=== PATIENT | female | born 1970 | race Caucasian/White ===

== ENCOUNTER 2024-11-02 13:23 | Emergency (ER) | payer OTHER, SELFPAY ==
[2024-11-02 13:24] VITALS: BP 170/98
[2024-11-02 13:29] LABS: Glucose - Point of Care 511 mg/dl (70-99)
[2024-11-02 14:29] LABS: Hematocrit 45.4 % (37.0-47.0); Hemoglobin 16.2 g/dL (12.0-16.0); Mean Corp Hgb Conc. 35.7 g/dL (33.0-37.0); Mean Corpuscular Volume 82.1 fL (81.0-99.0); Nucleated Red Blood Cells % 0 %; Platelet Count 277 10^3/uL (130-400); Red Cell Dist. Width 12.8 % (11.5-14.5)
[2024-11-02 14:55] LABS: ALT (SGPT) 17 U/L (0-35); AST (SGOT) 16 U/L (14-36); Albumin 4.1 g/dl (3.5-5.0); Alkaline Phosphatase 100 U/L (38-126); Blood Urea Nitrogen 21 mg/dl (7-17); Calcium 9.3 mg/dl (8.4-10.2); Carbon Dioxide 27 mmol/L (22-30); Chloride 95 mmol/L (98-107); Glucose 538 mg/dl (70-99); Potassium 4.4 mmol/L (3.5-5.1); Sodium 131 mmol/L (135-145); Total Protein 6.5 g/dl (6.3-8.2); eGFR > 60.00
[2024-11-02 14:56] VITALS: BMI 28.9
[2024-11-02] MEDS: LR 1000 IV (15:10)
[2024-11-02] MEDS: NOVOLOG vial 12 UNITS SC (15:30)
[2024-11-02 16:00] VITALS: BP 119/93
--- NOTE | 2024-11-02 16:05 | ED.GENMED ---
History of Present Illness
General
Chief Complaint: Blood Sugar Problem
Time Seen by Provider: 11/02/24 14:42
History of Present Illness
History of Present Illness:
54-year-old female presents to the emergency department due to uncontrolled blood sugars. She reports that she recently was on a course of prednisone which caused her sugars to elevate. She notes that she has occasional 'heaviness' of her tongue
but denies any polyuria or polydipsia. She admits that she neglected to take care of her known diabetes for the past several years. No chest pain or shortness of breath
Past History
Past History
ED Past Medical History: None
ED Past Surgical History: None
Social History
Tobacco: Non-smoker
Alcohol: Occasional
Personal:
Living: with family
Employment: Employed
Family History
Family History: Cancer
Review of Systems
Review of Systems
Allergies reviewed?: Yes
All Other Systems: ROS reviewed and negative except as documented in HPI and ROS
Phy Exam
Physical Exam
Physical Exam:
GEN: Well appearing, NAD, WDWN
HEENT: Oral mucosa moist, no scleral icterus
Cardiac: Regular rate and rhythm, no murmur
Lung: No respiratory distress, no tachypnea
Abdomen: Soft, nontender
MSK: No gross deformity or injuries
Skin: Good color, no pallor or jaundice, no rashes
Neuro: AO x3, moves all extremities freely
Psych: Calm, cooperative
Course
Orders/Labs/Results
Orders:
Orders
11/02/24 14:13
B-Hydroxybutyrate Urgent
Complete Blood Count/With Diff Urgent
Comprehensive Metabolic Panel Urgent
11/02/24 14:54
Lactated Ringers [Lr] 1,000 ml IV BOLUS
11/02/24 15:22
Insulin Aspart [NOVOLOG vial] 12 units SC NOW STA
11/02/24 16:18
Bedside Glucose- Treatment ONCE
Abnormal Lab Results
11/02/24 11/02/24 11/02/24
13:28 14:13 16:40
WBC 15.2 H 10^3/uL
(4.8-10.8)
RBC 5.53 H 10^6/uL
(4.20-5.40)
Hgb 16.2 H g/dL
(12.0-16.0)
Abs Immat Gran (auto) 0.1 H 10^3/uL
(0-0.05)
Absolute Neuts (auto) 13.3 H 10^3/uL
(1.4-6.5)
Neutrophils % 87.7 H %
(42.2-75.2)
Lymphocytes % 8.4 L %
(20.5-51.1)
Sodium 131 L mmol/L
(135-145)
Chloride 95 L mmol/L
(98-107)
BUN 21 H mg/dl
(7-17)
Creatinine 0.5 L mg/dL
(0.6-1.0)
Glucose 538 H* mg/dl
(70-99)
B-Hydroxybutyrate 1.53 H mmol/L
(0.02-0.27)
POC Glucose 511 H* mg/dl 364 H mg/dl
(70-99) (70-99)
11/02/24 14:13
11/02/24 14:13
Vital Signs
Initial and Last Documented VS:
Initial Vital Signs
Temp Pulse Resp BP Pulse Ox
97.8 F 97 18 170/98 98
11/02/24 13:24 11/02/24 13:24 11/02/24 13:24 11/02/24 13:24 11/02/24 13:24
Last Documented Vital Signs
Temp Pulse Resp BP Pulse Ox
97.8 F 84 12 128/74 97
11/02/24 13:24 11/02/24 16:45 11/02/24 16:45 11/02/24 16:31 11/02/24 16:45
MDM/Problems Addressed
MDM/Problems Addressed:
Patient significant increase in glucoses most likely driven by prednisone dosage recently. She is a known uncontrolled diabetic however on labs today she is mildly ketotic with no anion gap. We did treat her in the ED with subcu insulin and IV
fluids. We will refer her as an outpatient to the diabetes educators, we discussed initiation of oral medications however she notes prior intolerance to metformin thus we will start glipizide
*Pulse Oximetry
SaO2: 96
Oxygen Mode of Delivery: Room air
Patient hypoxic: no
*Critical Care Note
Total Time (30-74mins, 75-104mins- exclusive of procedures): Not Applicable
ED Attending Note
-
Portions of this chart may have been created with voice recognition software.� Occasional wrong word or��sound alike� substitutions may have occurred due to the inherent limitations of voice recognition software.
Discharge Plan
Departure
Patient Disposition: Home (Routine Discharge)
Date of Disposition: 11/02/24
Time of Disposition: 16:57
Patient with high blood pressure during this ER visit?: No
Discharge Problem:
Uncontrolled diabetes mellitus
Instructions: Carb counting for adults with diabetes, Diabetes and diet
Prescriptions:
New
glipizide 5 mg tablet
5 mg PO BID Qty: 60 0RF
(DME) True Metrix Glucose Test Strip Strip
See Rx Instructions .Route Qty: 100 0RF
Rx Instructions:
As directed
(DME) blood-glucose meter Kit
See Rx Instructions .Route Qty: 1 0RF
Rx Instructions:
As directed
No Action
No Meds
Referrals:
Henrry Johnson MD [Family Provider]
Jayde Sánchez NP [Specified Professional Personl]
Referral Note: Call [phone] for appointment
Activity Restrictions/Additional Instructions:
Follow-up with our inclusion special educator for next [employer] management
Interventions
Interventions:
*Risk Screen - Suicide Last Done: 11/02/24 13:24
*General Assessment Last Done: 11/02/24 13:24
*Neglect/Abuse Screening Last Done: 11/02/24 14:56
*ED- Fall Risk Assessment Last Done: 11/02/24 14:56
*ED COVID-19 Vaccine History Last Done: 11/02/24 14:56
*Nursing Disposition Last Done: 11/02/24 17:23
ED- Neurological Assessment Last Done: 11/02/24 14:56
Discharge Date and Time
Discharge Date/Time: 11/02/24 17:24
Print Language: PARAGUAYAN
[2024-11-02 16:31] VITALS: BP 128/74
[2024-11-02 16:42] LABS: Glucose - Point of Care 364 mg/dl (70-99)
== END 2024-11-02 17:24 | disposition home or self-care (01) ==
LOC: EMR 13:23
PROVIDERS: Student in an Organized Health Care Education/Training Program; EMERGENCY PHYSICIAN Emergency Medicine; FAMILY PHYSICIAN Internal Medicine
DX: E11.10 Type 2 diabetes mellitus with ketoacidosis without coma (principal)
CPT/HCPCS: 96372; 96360; 99284; 80053; 82010; 82962; 85025

== ENCOUNTER → 2024-11-12 11:28 | Outpatient (REF) | payer OTHER, SELFPAY ==
--- NOTE | 2024-11-12 12:30 | PN.DE.MGMTRT ---
Insulin Management
- -
11/12/2024 Diabetes Management Consult
Patient seen in Emergency Department 11/02 for elevated blood sugar, referred to me for diabetes care. Patient had gestational diabetes 15 years ago, after glucose controlled. Approximately 10 years ago was diagnosed with diabetes. She
states she recently has been struggling with ADD, new dx, R ear feeling clogged, dizzy, and difficulty talking She saw ENT and has follow up scheduled. Her last A1C was in April 2024 she reports it was 14%. She states she only eats about 10
things. Admits she is not a great patient, often starts to do something but then forgets to complete.
In the ED she was prescribed glipizide 5 mg BID. States she has taken the medication. Has not been testing glucose.
Provided and instructed on glucose testing with [employer] Next meter. Instructed to test glucose 4 times per day, fasting and 2 hours after each meal. Fasting glucose today 347.
Provided nutrition education booklet and reviewed portions and serving per meal. She verbalized understanding. Recommended 30 to 45 grams of carb per meal, 1 protein at breakfast, 2 with lunch and 3 with dinner. Fat servings 2 at each meal.
She will test glucose 4 times per day and report results to me on Saturday.
We discussed that she most likely will need insulin, she is agreeable. Will determine if insulin is required after glucose monitoring in completed for 5 days.
RX for test strips and lancets transmitted to pharmacy.
My number and email provided for follow up.
Diabetes History
- -
Type of Diabetes: 2
Pre-Admission Diabetes Regimen
Insulin Pump Settings
IP Diabetes Regimen
Patient Education
== END ==
LOC: DES 11:28
PROVIDERS: ATTENDING PHYSICIAN Internal Medicine
DX: E11.65 Type 2 diabetes mellitus with hyperglycemia (principal)
CPT/HCPCS: 99078

== ENCOUNTER → 2024-11-20 07:50 | Outpatient (REF) | payer OTHER, SELFPAY | LOC: WOUND 07:50 | PROVIDERS: ATTENDING PHYSICIAN Surgery | DX: E11.621 Type 2 diabetes mellitus with foot ulcer (principal); L97.512 Non-pressure chronic ulcer of other part of right foot with fat layer exposed | CPT/HCPCS: 11042; 99203 ==

== ENCOUNTER → 2024-11-26 13:14 | Outpatient (REF) | payer OTHER, SELFPAY | LOC: WOUND 13:14 | PROVIDERS: ATTENDING PHYSICIAN Surgery | DX: E11.621 Type 2 diabetes mellitus with foot ulcer (principal); L97.512 Non-pressure chronic ulcer of other part of right foot with fat layer exposed; E11.9 Type 2 diabetes mellitus without complications | CPT/HCPCS: 97597 ==